=== PATIENT | male | born 1980 | race Caucasian/White ===

== ENCOUNTER 2016-03-22 21:16 | Emergency (ER) | payer OTHER ==
[~2016-03-22] VITALS: Ht 182.9 cm; Wt 72.7 kg
[2016-03-22 21:20] VITALS: Ht 182.9 cm; Wt 72.7 kg
[2016-03-22] MEDS ORDERED: IBUPROFEN 600 MG TAB PO ONE (23:00)
--- NOTE | 2016-03-22 23:33 | ERD ---
ER Documentation Chief Complaint Date/Time DATE: 03/22/16 TIME: 23:32 Chief Complaint AMBIKA,twisted his R ankle while getting off a bus this AM HPI 35-year-old male presents here in emergency department for complaints of right ankle, right heel pain after stepping off the bus and twisted the right foot this morning. Patient describe the pain as throbbing pain, 6/10 scale, is worse upon walking, accompanied with some. Patient did not take any medications up and symptoms. Patient denies any deformity. Patient denies any fever or chills. Patient denies any numbness or tingling. ROS All systems reviewed and are negative except as per history of present illness. Medications Home Meds Reported Medications [none] Unknown Strength No Conflict Check 03/22/16 Allergies Allergies: Coded Allergies: No Known Allergy (Unverified , 03/22/16) PMhx/Soc Medical and Surgical Hx: pt denies Medical Hx, pt denies Surgical Hx Physical Exam Vitals Vital Signs Date Time Temp Pulse Resp B/P Pulse Ox O2 Delivery O2 Flow Rate FiO2 03/22/16 21:20 100.1 75 20 137/63 95 Physical Exam Const: [] Head: Atraumatic Eyes: Normal Conjunctiva ENT: Normal External Ears, Nose and Mouth. Neck: Full range of motion..~ No meningismus. Resp: Clear to auscultation bilaterally Cardio: Regular rate and rhythm, no murmurs Abd: Soft, non tender, non distended. Normal bowel sounds Skin: No petechiae or rashes Back: No midline or flank tenderness Ext: No cyanosis, or edema Neur: Awake and alert Psych: Normal Mood and Affect Results 24 hrs Current Medications Medications (Trade) Dose Ordered Sig/Sher Route PRN Reason Start Time Stop Time Status Last Admin Dose Admin Ibuprofen (Motrin) 600 mg ONCE ONCE PO 03/22/16 23:00 03/22/16 23:01 DC 03/22/16 23:08 Patient was given medication for pain here in emergency department, after treatment, patient verbalized feeling much better. Patient's pain is improved. PROCEDURE: XR Right Ankle. CLINICAL INDICATION: Right heel and ankle pain. TECHNIQUE: AP, oblique and lateral views of the right ankle were performed. COMPARISON: None. FINDINGS: There is normal mineralization and alignment. No acute fracture or osseous lesion is identified. The joints are normal. The soft tissues are unremarkable. IMPRESSION: Unremarkable right ankle. RPTAT: [facility] Physician Elizabeth Date Time Electronically viewed and signed by Physician Elizabeth on 03/23/2016 00:03 PROCEDURE: XR Foot. CLINICAL INDICATION: Right heel and ankle pain. TECHNIQUE: AP, lateral and oblique views of the right foot was obtained. The images were reviewed on a PACS workstation. COMPARISON: None. FINDINGS: The bones of the foot appear intact, with no evidence of fracture, dislocation, or subluxation. Bone mineralization is normal. No significant soft tissue swelling is seen. IMPRESSION: No acute fracture or dislocation. RPTAT: [facility] Physician Elizabeth Date Time Electronically viewed and signed by Physician Elizabeth on 03/23/2016 00:02 Procedures/MDM Medical Decision Making: Patient's pain is most likely consistent with a contusion or a sprain. There is no suspicion for neurovascular compromise. Patient has intact sensation and circulation of the affected extremity. There is low suspicion for septic arthritis. Patient does not have any fever. Radiology exams of the affected area does not show any fracture or dislocation. Disposition: Home. Patient is given prescription for ibuprofen for pain, Tramadol for severe pain. Patient was advised to elevate the affected area and apply ice on affected area. Patient was advised that if symptoms are worse, numbness, tingling, high fever, unable to move joint, worsening symptoms, to return to emergency department immediately. Otherwise, patient is advised to follow up with the primary care doctor in 5-7 days for reevaluation of symptoms. Departure Diagnosis: Primary Impression: Foot pain Laterality: right Qualified Code: M79.671 - Right foot pain Additional Impression: Ankle pain Laterality: right Chronicity: acute Qualified Code: M25.571 - Acute right ankle pain Condition: Stable Patient Instructions: Contusion, Foot, Sprain, Ankle, With X-Ray Additional Instructions: Patient is given prescription for ibuprofen for pain,Tramadol for severe pain. Patient was advised to elevate the affected area and apply ice on affected area. Patient was advised that if symptoms are worse, numbness, tingling, high fever, unable to move joint, worsening symptoms, to return to emergency department immediately. Otherwise, patient is advised to follow up with the primary care doctor in 5-7 days for reevaluation of symptoms. QING SANTA NP Mar 22, 2016 23:33
--- NOTE | 2016-03-23 00:02 | RADRPT ---
PROCEDURE: XR Foot. CLINICAL INDICATION: Right heel and ankle pain. TECHNIQUE: AP, lateral and oblique views of the right foot was obtained. The images were reviewed on a PACS workstation. COMPARISON: None. FINDINGS: The bones of the foot appear intact, with no evidence of fracture, dislocation, or subluxation. Bone mineralization is normal. No significant soft tissue swelling is seen. IMPRESSION: No acute fracture or dislocation. RPTAT: [facility] Physician Elizabeth Date Time Electronically viewed and signed by Physician Elizabeth on 03/23/2016 00:02 RS/
--- NOTE | 2016-03-23 00:03 | RADRPT ---
PROCEDURE: XR Right Ankle. CLINICAL INDICATION: Right heel and ankle pain. TECHNIQUE: AP, oblique and lateral views of the right ankle were performed. COMPARISON: None. FINDINGS: There is normal mineralization and alignment. No acute fracture or osseous lesion is identified. The joints are normal. The soft tissues are unremarkable. IMPRESSION: Unremarkable right ankle. RPTAT: [facility] Physician Elizabeth Date Time Electronically viewed and signed by Physician Elizabeth on 03/23/2016 00:03 RS/
[2016-03-23] MEDS ORDERED: ULT50 PO (01:08)
[2016-03-23] MEDS ORDERED: IBUP-1542 PO (01:08)
[2016-03-23 01:56] VITALS: BP 107/53; PULSE 56; RESP 18; TEMP 98.4
== END 2016-03-23 01:56 | disposition home or self-care (01) ==
LOC: FTE 21:16
DX: S99.921A Unspecified injury of right foot, initial encounter (principal); X50.1XXA Overexertion from prolonged static or awkward postures, initial encounter; Y92.9 Unspecified place or not applicable
CPT/HCPCS: 73610; 73630; Z7502; Z7610